=== PATIENT | female | born 1990 | race Caucasian/White ===

== ENCOUNTER 2023-04-15 15:54 | Outpatient (CLI) | payer OTHER | END 2023-04-15 17:31 | disposition home or self-care (01) | LOC: PRENATAL 15:54 | PROVIDERS: ATTEND Obstetrics & Gynecology Maternal & Fetal Medicine | DX: O36.80X0 Pregnancy with inconclusive fetal viability, not applicable or unspecified (principal); Z36.82 Encounter for antenatal screening for nuchal translucency; Z36.9 Encounter for antenatal screening, unspecified; Z14.8 Genetic carrier of other disease; O34.219 Maternal care for unspecified type scar from previous cesarean delivery; O99.210 Obesity complicating pregnancy, unspecified trimester; Z3A.13 13 weeks gestation of pregnancy ==

== ENCOUNTER → 2023-05-31 16:01 | Outpatient (CLI) | payer OTHER | END | disposition home or self-care (01) | LOC: PRENATAL 16:01 | PROVIDERS: ATTEND Obstetrics & Gynecology Maternal & Fetal Medicine | DX: O35.3XX0 Maternal care for (suspected) damage to fetus from viral disease in mother, not applicable or unspecified (principal); O34.219 Maternal care for unspecified type scar from previous cesarean delivery; O99.210 Obesity complicating pregnancy, unspecified trimester; O44.00 Complete placenta previa NOS or without hemorrhage, unspecified trimester; Z3A.20 20 weeks gestation of pregnancy ==

== ENCOUNTER 2023-07-26 15:20 | Outpatient (CLI) | payer OTHER | END 2023-07-26 15:27 | disposition home or self-care (01) | LOC: PRENATAL 15:20 | PROVIDERS: ATTEND Obstetrics & Gynecology Maternal & Fetal Medicine | DX: O26.849 Uterine size-date discrepancy, unspecified trimester (principal); O34.219 Maternal care for unspecified type scar from previous cesarean delivery; O99.210 Obesity complicating pregnancy, unspecified trimester; O44.00 Complete placenta previa NOS or without hemorrhage, unspecified trimester; Z3A.28 28 weeks gestation of pregnancy ==

== ENCOUNTER 2023-09-06 15:53 | Outpatient (CLI) | payer OTHER | END 2023-09-06 15:54 | disposition home or self-care (01) | LOC: PRENATAL 15:53 | PROVIDERS: ATTEND Obstetrics & Gynecology Maternal & Fetal Medicine | DX: O26.849 Uterine size-date discrepancy, unspecified trimester (principal); O36.8199 Decreased fetal movements, unspecified trimester, other fetus; O34.219 Maternal care for unspecified type scar from previous cesarean delivery; O99.210 Obesity complicating pregnancy, unspecified trimester; O44.00 Complete placenta previa NOS or without hemorrhage, unspecified trimester; Z3A.34 34 weeks gestation of pregnancy ==

== ENCOUNTER 2023-10-01 14:25 | Inpatient (IN) | payer OTHER ==
[~2023-10-01] VITALS: Ht 167.6 cm; Wt 3.2 kg
[2023-10-01] MEDS ORDERED: PRENATAL (15:02)
[2023-10-01 15:04] LABS: HEMATOCRIT 33.3 % (36.0-45.00); MEAN CELL VOLUME 76.3 fL (80.00-100.00); MEAN CORPUSCULAR HEMOGLOBIN 25.1 pg (27.00-32.0); MEAN CORPUSCULAR HGB CONC 32.9 g/dl (32.0-36.0); PLATELET COUNT 275 K/uL (150-450); RED BLOOD COUNT 4.36 M/uL (4.00-6.00); RED CELL DISTRIBUTION WIDTH 16.5 % (11.5-14.5)
[2023-10-01 15:22] LABS: PH,URINE 6.5 (5.0-8.0); URINE APPEARANCE Cloudy; URINE BILIRRUBIN Negative (NEGATIVE); URINE BLOOD Negative; URINE COLOR Yellow; URINE GLUCOSE Negative (NEGATIVE); URINE LEUKOCYTE Trace; URINE NITRATE Negative; URINE PROTEIN Trace (NEGATIVE)
[2023-10-01 15:24] LABS: URINE EPITHELIAL CELLS 12.9 uL (0.0-38.8); URINE RBC 2.4 uL (0.0-20.8); URINE WBC 11.5 uL (0.0-23.2)
[2023-10-01 15:26] LABS: URINE BACTERIA > 9821.5 uL (0.0-1933)
[2023-10-01 15:41] LABS: INR 0.98; PARTIAL THROMBOPLASTIN TIME 27.2 SECONDS (22.0-34.0); PROTHROMBIN TIME 10.3 SECONDS (9.0-11.5)
[2023-10-05] MEDS ORDERED: FOLIC ACID0.8 M1 PO (07:48)
[2023-10-05] MEDS ORDERED: OXYTOCIN 10 UNITS/ML VIAL ONE (11:09)
[2023-10-05] MEDS ORDERED: CEFAZOLIN SODIUM 1,000 MG VIAL ONE (11:10)
[2023-10-05] MEDS ORDERED: ERYTHROMYCIN BASE 1 GM TUBE OP ONE ×2 (11:11→17:00)
[2023-10-05] MEDS ORDERED: PROMETHAZINE HCL 50 MG/ML AMPUL IM PRN (13:00)
[2023-10-05] MEDS ORDERED: MEPERIDINE HCL/PF 50 MG/ML VIAL IM PRN (13:00)
[2023-10-05 14:26] LABS: ABG PH 7.307 (7.35-7.45); ABG pCO2 46.7 mmHg (35-45)
[2023-10-05 14:27] LABS: ABG PO2 28.8 mmHg (80-100); BASE EXCESS 46.5 mmol/l; BICARBONATE -3.7 mmol/l (23-25); SaO2 28.8 %; Tco2 22.8 mmol/l; o2 24.2 %
[2023-10-05] MEDS ORDERED: OXYTOCIN 10 UNITS/ML VIAL IV ONE (17:00)
[2023-10-05] MEDS ORDERED: CEFAZOLIN SODIUM 1,000 MG VIAL IV ONE (17:00)
[2023-10-05 20:14] LABS: HEMATOCRIT 31.4 % (36.0-45.00); HEMOGLOBIN 10.3 g/dL (12.0-15.00); MEAN CELL VOLUME 75.1 fL (80.00-100.00); MEAN CORPUSCULAR HEMOGLOBIN 24.6 pg (27.00-32.0); MEAN CORPUSCULAR HGB CONC 32.7 g/dl (32.0-36.0); PLATELET COUNT 263 K/uL (150-450); RED BLOOD COUNT 4.18 M/uL (4.00-6.00); RED CELL DISTRIBUTION WIDTH 16.5 % (11.5-14.5)
[2023-10-06] MEDS ORDERED: PNV,CALCIUM 72/IRON/FOLIC ACID 1 TAB TABLET PO SCH ×2 (08:00→09:00)
[2023-10-06] MEDS ORDERED: OxyCODONE HCL/APAP UD (PERCOCET) PO PRN (08:00)
[2023-10-06] MEDS ORDERED: DOCUSATE SODIUM 100MG CAP PO SCH ×2 (08:00→09:00)
[2023-10-06] MEDS ORDERED: SIMETHICONE 125 MG CAPSULE PO SCH ×2 (08:00→09:00)
[2023-10-08] MEDS ORDERED: IBUPROFEN800 MG PO (09:58)
== END 2023-10-08 15:31 | disposition home or self-care (01) | DRG 785 ==
LOC: OB/GYN 10-05 08:43 → O/R 10-05 08:43 → OB/GYN 10-05 13:57
PROVIDERS: ADMIT Obstetrics & Gynecology; ATTEND Obstetrics & Gynecology
PROC: 0UB70ZZ Excision of Bilateral Fallopian Tubes, Open Approach (ICD-10-PCS; 2023-10-05)
PROC: 4A1HXCZ Monitoring of Products of Conception, Cardiac Rate, External Approach (ICD-10-PCS; 2023-10-05)
PROC: 10D00Z1 Extraction of Products of Conception, Low, Open Approach (ICD-10-PCS; principal; 2023-10-05 10:15)
DX: O34.211 Maternal care for low transverse scar from previous cesarean delivery (principal); O99.824 Streptococcus B carrier state complicating childbirth; Z3A.38 38 weeks gestation of pregnancy; Z37.0 Single live birth; Z20.822 Contact with and (suspected) exposure to COVID-19; Z30.2 Encounter for sterilization